=== PATIENT | female | born 1990 | race African-American/Black ===

== ENCOUNTER 2017-08-01 21:14 | Emergency (ER) | payer MEDICAID ==
[~2017-08-01] VITALS: Ht 160 cm; Wt 89.9 kg
[2017-08-01] MEDS ORDERED: ONDANSETRON ODT 4 MG ONE (21:53)
[2017-08-01] MEDS ORDERED: ONDANSETRON ODT 4 MG PO ONE (22:30)
[2017-08-01] MEDS ORDERED: LIDOCAINE 1%, 20ML ONE (22:45)
[2017-08-01] MEDS ORDERED: LIDOCAINE 1%, 20ML SQ ONE (23:00)
[2017-08-01] MEDS ORDERED: KETOROLAC 30 MG/1 ML ONE (23:25)
[2017-08-01] MEDS ORDERED: KETOROLAC 30 MG/1 ML IM ONE (23:30)
[2017-08-01 23:32] VITALS: BP 122/62
== END 2017-08-01 23:35 | disposition home or self-care (01) ==
LOC: ED 23:28
DX: L03.311 Cellulitis of abdominal wall (principal); L02.211 Cutaneous abscess of abdominal wall
CPT/HCPCS: 10060; 96372; 99283; J1885; J3490; Q0162

== ENCOUNTER 2017-08-09 11:53 | Emergency (ER) | payer MEDICAID ==
[~2017-08-09] VITALS: Ht 165.1 cm; Wt 80.0 kg
[2017-08-09 11:58] VITALS: BP 146/96
[2017-08-09] MEDS ORDERED: ACETAMINOPHEN 500 MG TABLET PO ONE (12:30)
== END 2017-08-09 13:22 | disposition left against medical advice (07) ==
LOC: ED 12:45
DX: S00.83XA Contusion of other part of head, initial encounter (principal); Y04.0XXA Assault by unarmed brawl or fight, initial encounter; Y93.89 Activity, other specified; Y92.098 Other place in other non-institutional residence as the place of occurrence of the external cause; Y99.8 Other external cause status
CPT/HCPCS: 99283

== ENCOUNTER 2019-03-14 10:59 | Emergency (ER) | payer MEDICAID, OTHER ==
[~2019-03-14] VITALS: Ht 162.6 cm; Wt 89.1 kg
--- NOTE | 2019-03-14 11:00 | NUR ---
PT ARRIVED TO ROOM 23 AMBULATORY WITH FAMILY. PT C/O "BILAT WRIST AND HAND PAIN, REPORTS HX CARPAL TUNNEL. APPT 04/01 WITH PCP." PT AAO X 4, VSS IN TRIAGE. [place] [facility] [place] WITH[place]ACH. MD AT BEDSIDE FOR EXAM, NEW ORDERS RECEIVED AND IMPLEMTED.
[2019-03-14 11:06] VITALS: BP 109/66
[2019-03-14] MEDS ORDERED: NAPROXEN 500 MG TABLET PO ONE (11:30)
[2019-03-14] MEDS ORDERED: NAPROXEN 500 MG TABLET ONE (11:38)
--- NOTE | 2019-03-14 11:41 | NUR ---
PE MEDICATED WITH 500MG NAPROXEN PER MD ORDER, SEE MAR. PT TOLERATED WELL. RESTING IN GURNEY WITH FAMILY AT BEDSIDE, CALL LIGHT WITHIN REACH.
--- NOTE | 2019-03-14 11:59 | NUR ---
ALL RESULTS BACK AT THIS TIME, CHART UP FOR RECHECK.
--- NOTE | 2019-03-14 12:37 | NUR ---
Tiera jalloh in [facility] - 03/14/19 at 1237 by JACQUELIN Patient/Caregiver given discharge instructions and they have confirmed that they understand the instructions. Patient ambulatory with steady gait.
--- NOTE | 2019-03-14 12:37 | NUR ---
Patient/Caregiver given discharge instructions and they have confirmed that they understand the instructions. Patient ambulatory with steady gait.
--- NOTE | 2019-03-14 13:37 | NUR ---
TASK RN: Patient/Caregiver given discharge instructions and they have confirmed that they understand the instructions. Patient ambulatory with steady gait.
== END 2019-03-14 13:41 | disposition home or self-care (01) ==
LOC: ED 13:35
DX: M79.641 Pain in right hand (principal); M79.642 Pain in left hand
CPT/HCPCS: 99283